=== PATIENT | female | born 1955 | race Caucasian/White ===

== ENCOUNTER 2020-03-20 22:48 | Inpatient (IN) ==
[2020-03-20] MEDS ORDERED: Isovue-370 500 ML BOTTLE IVP ONE (23:39)
[2020-03-20] MEDS ORDERED: Ondansetron 4 MG/2 ML VIAL IVP ONE (23:39)
[2020-03-20] MEDS ORDERED: 0.9 % Sodium Chloride 1,000 ML IVC ONE (23:39)
[2020-03-20 23:42] LABS: Hematocrit 56.1 % (35.3-44.9); Hemoglobin 18.3 g/dL (11.5-15.4); Mean Corpuscular HGB Conc 32.6 g/dL (31.6-35.5); Mean Corpuscular Hemoglobin 31.3 pg (28.0-33.3); Mean Corpuscular Volume 95.9 fL (83.0-100.0); Mean Platelet Volume 10.5 fL (9.4-12.4); Platelet Count 328 K/mcL (140-400); Red Blood Count 5.85 M/mcL (3.82-4.97); Red Cell Distribution Width 13.8 % (11.5-14.5); White Blood Count 13.3 K/mcL (4.3-11.1)
[2020-03-20 23:45] LABS: INR 1.5; Prothrombin Time 16.6 Seconds (9.4-12.1)
[2020-03-20 23:47] LABS: Activated Partial Thrombo Time 37.7 Seconds (26.0-36.0)
[2020-03-21 00:12] LABS: Lymphocytes # 3.2 K/mcL (0.6-4.6); Monocytes # 0.3 K/mcL (0.0-1.3); Neutrophils # 9.8 K/mcL (1.6-8.9); Platelet Estimate Normal (Normal); Reactive Lymphocytes Present (Not Present); Troponin I 0.04 ng/mL (< 0.04)
[2020-03-21 00:52] LABS: Albumin 3.3 g/dL (3.5-5.7); Albumin/Globulin Ratio 1.2 (1.1-2.2); Bilirubin,Direct 0.2 mg/dL (0.0-0.2); Bilirubin,Total 1.2 mg/dL (0.3-1.0); Calcium 8.6 mg/dL (8.6-10.3); Globulin 2.8 g/dL (2.4-3.5); Potassium 4.5 mEq/L (3.5-5.1); Total Protein 6.1 g/dL (6.4-8.9)
[2020-03-21] MEDS ORDERED: 0.9 % Sodium Chloride 1,000 ML IVC ONE (01:02)
[2020-03-21] MEDS ORDERED: Morphine Sulfate 2 MG/ML SYRINGE IVP ONE (02:01)
[2020-03-21 02:35] LABS: Amorphous Sediment,Urine Few per hpf (None-Few); Bacteria,Urine Few per hpf (None-Few); Bilirubin,Urine Negative (Negative); Blood,Urine Trace (Negative); Clarity,Urine Turbid (Clear); Color,Urine Light-Orange (Yellow); Glucose,Urine (UA) Normal (Normal); Hyaline Casts,Urine Many per lpf (None Seen); Ketones,Urine Negative (Negative); Leukocyte Esterase,Urine Negative (Negative); Mucus,Urine Few per lpf (None-Few); Nitrite,Urine Negative (Negative); PH,Urine 5.5 pH Units (5.0-8.0); Protein,Urine 70 mg/dL (Neg-Trace); RBC,Urine 0-3 per hpf (0-3); Specific Gravity,Urine 1.027 (1.010-1.025); Squamous Epithelial Cell,Urine Few per hpf (None-Few); Urobilinogen,Urine Normal (Normal); WBC,Urine 0-3 per hpf (0-3)
[2020-03-21] MEDS ORDERED: *HR* HYDROmorphone (PF) 1 MG/ML SYRINGE IVP ONE (03:21)
[2020-03-21] MEDS ORDERED: Piperacillin/Tazobactam 4.5 GM in 0.9 % Sodium Chloride Mini Bag 100 ML IVPB ONE (03:21)
[2020-03-21] MEDS ORDERED: 0.9 % Sodium Chloride 1,000 ML IVC SCH ×2 (03:30→06:15)
[2020-03-21] MEDS ORDERED: *HR* Rocuronium Bromide 50 MG/5 ML VIAL ONE (04:31)
[2020-03-21] MEDS ORDERED: *HR* Propofol 200 MG/20 ML VIAL IVP ONE (04:31)
[2020-03-21] MEDS ORDERED: *HR* Succinylcholine 200 MG/10 ML VIAL IVP ONE (04:31)
[2020-03-21] MEDS ORDERED: Lidocaine -MPF 2% 2 ML VIAL ONE (04:31)
[2020-03-21] MEDS ORDERED: Lidocaine -MPF 4% 5 ML AMPUL ONE ×2 (04:31→07:08)
[2020-03-21] MEDS ORDERED: *HR* FentaNYL (PF) 100 MCG/2 ML VIAL ONE (04:31)
[2020-03-21] MEDS ORDERED: Ondansetron 4 MG/2 ML VIAL IVP PRN (05:30)
[2020-03-21] MEDS ORDERED: Naloxone 0.4 MG/ML INJ IVP PRN (05:30)
[2020-03-21] MEDS ORDERED: Morphine Sulfate 2 MG/ML SYRINGE IVP PRN (05:32)
[2020-03-21 06:43] LABS: Hematocrit 52.6 % (35.3-44.9); Mean Corpuscular HGB Conc 31.2 g/dL (31.6-35.5); Mean Corpuscular Volume 99.4 fL (83.0-100.0); Mean Platelet Volume 10.8 fL (9.4-12.4); Platelet Count 287 K/mcL (140-400); Red Blood Count 5.29 M/mcL (3.82-4.97); Red Cell Distribution Width 14.2 % (11.5-14.5); White Blood Count 11.9 K/mcL (4.3-11.1)
[2020-03-21 06:49] LABS: INR 1.8; Prothrombin Time 20.7 Seconds (9.4-12.1)
[2020-03-21] MEDS ORDERED: Famotidine 20 MG/2 ML VIAL ONE (06:49)
[2020-03-21] MEDS ORDERED: Acetaminophen IV 1,000 MG/100 ML INFUS..BTL ONE (06:49)
[2020-03-21 06:52] LABS: Hemoglobin 16.4 g/dL (11.5-15.4)
[2020-03-21 07:08] LABS: Albumin/Globulin Ratio 1.3 (1.1-2.2); Bilirubin,Total 0.9 mg/dL (0.3-1.0); Calcium 7.6 mg/dL (8.6-10.3); Globulin 2.3 g/dL (2.4-3.5); Magnesium 6.5 mg/dL (1.6-2.6); Phosphorous 8.4 mg/dL (2.7-4.5); Potassium 4.8 mEq/L (3.5-5.1); Total Protein 5.3 g/dL (6.4-8.9)
[2020-03-21] MEDS ORDERED: Dexamethasone 4 MG/ML VIAL ONE (07:08)
[2020-03-21] MEDS ORDERED: Ondansetron 4 MG/2 ML VIAL ONE (07:08)
[2020-03-21] MEDS ORDERED: *HR* PHENYLEPHRINE 1,000 MCG/10 ML SYRINGE IVP ONE (07:23)
[2020-03-21] MEDS ORDERED: *HR* Etomidate 40 MG/20 ML VIAL IVP ONE (07:24)
[2020-03-21] MEDS ORDERED: *HR* Vasopressin 20 UNIT/ML VIAL ONE (07:26)
[2020-03-21 07:29] LABS: Eosinophils # 0.1 K/mcL (0.0-0.6); Lymphocytes # 0.6 K/mcL (0.6-4.6); Monocytes # 0.1 K/mcL (0.0-1.3); Neutrophils # 5.7 K/mcL (1.6-8.9)
[2020-03-21 07:37] LABS: Platelet Estimate Normal (Normal); Reactive Lymphocytes Present (Not Present)
[2020-03-21] MEDS ORDERED: EPINEPHrine 1 MG/ML VIAL ONE (07:44)
[2020-03-21] MEDS ORDERED: Albumin Human 5% 12.5 GM/250 ML IV.SOLN ONE ×2 (07:45→08:19)
[2020-03-21] MEDS ORDERED: Heparin 1,000 UNITS/500 mL 500 ML ONE (07:46)
[2020-03-21] MEDS ORDERED: CefOXitin 1,000 MG VIAL ONE (07:50)
[2020-03-21] MEDS ORDERED: Calcium Chloride 1,000 MG in 0.9 % Sodium Chloride 100 ML IVPB ONE ×3 (08:26→09:30)
[2020-03-21] MEDS ORDERED: Norepinephrine 4 MG/254 ML IV.SOLN IVC SCH (08:30)
[2020-03-21] MEDS ORDERED: Phenylephrine 10 MG in 0.9 % Sodium Chloride 250 ML IVC SCH (08:30)
[2020-03-21] MEDS ORDERED: *HR* Midazolam HCl 2 MG/2 ML VIAL ONE (08:32)
[2020-03-21] MEDS ORDERED: Fluconazole 400 MG/200 ML 400 MG/200 ML BAG IVPB ONE ×2 (08:39→09:30)
[2020-03-21] MEDS ORDERED: EPINEPHrine 1 MG in D5% in Water 250 ML IVC SCH (08:45)
[2020-03-21] MEDS ORDERED: Hydrocortisone Sodium Succ 100 MG/2 ML VIAL IVP ONE ×2 (08:49→09:30)
[2020-03-21] MEDS ORDERED: Pantoprazole 40 MG VIAL IVP SCH (08:50)
[2020-03-21] MEDS ORDERED: Perflutren Lipid Microsphere 1.3 ML in 0.9 % Sodium Chloride 8.7 ML IVP ONE ×2 (08:54→09:30)
[2020-03-21] MEDS ORDERED: Midazolam HCl 50 MG/100 ML IV.SOLN IVC SCH (09:00)
[2020-03-21] MEDS ORDERED: FentaNYL (PF) 1,000 MCG/100 ML IV.SOLN IVC SCH (09:00)
[2020-03-21] MEDS: FentaNYL (PF) 1,000 MCG/100 ML IV.SOLN IVC SCH ×2 (09:00→20:02)
[2020-03-21 09:19] LABS: ABG Base Excess -6 mEq/L (-2 to 3); ABG HCO3 20 mEq/L (21-27); ABG Oxygen Saturation 100 % (95-98); ABG PCO2 43 mmHg (35-45); ABG PH 7.28 pH Units (7.32-7.45); ABG PO2 597 mmHg (85-104); ABG TCO2 21 mEq/L (20-26); Blood Gas Modality VC; Blood Gas VT 500 cc
[2020-03-21 09:23] LABS: Bilirubin,Total 0.6 mg/dL (0.3-1.0); Potassium 5.5 mEq/L (3.5-5.1)
[2020-03-21] MEDS: 0.9 % Sodium Chloride 1,000 ML IVC SCH ×2 (09:57→19:30)
[2020-03-21] MEDS: Midazolam HCl 50 MG/100 ML IV.SOLN IVC SCH (09:59)
[2020-03-21] MEDS: Norepinephrine 4 MG/254 ML IV.SOLN IVC SCH ×3 (10:00→20:55)
[2020-03-21] MEDS: EPINEPHrine 1 MG in D5% in Water 250 ML IVC SCH (10:00)
[2020-03-21 11:40] LABS: ABG Base Excess -6 mEq/L (-2 to 3); ABG HCO3 22 mEq/L (21-27); ABG Oxygen Saturation 96 % (95-98); ABG PCO2 51 mmHg (35-45); ABG PH 7.24 pH Units (7.32-7.45); ABG PO2 93 mmHg (85-104); ABG TCO2 23 mEq/L (20-26); Blood Gas Modality VC; Blood Gas VT 450 cc
[2020-03-21] MEDS ORDERED: Ipratropium/Albuterol Neb 3 ML IH PRN (11:44)
[2020-03-21] MEDS ORDERED: Calcium Chloride 2,000 MG in 0.9 % Sodium Chloride 100 ML IVPB ONE (12:45)
[2020-03-21 13:04] LABS: Hematocrit 44.7 % (35.3-44.9); Mean Corpuscular HGB Conc 31.5 g/dL (31.6-35.5); Mean Corpuscular Hemoglobin 31.3 pg (28.0-33.3); Mean Corpuscular Volume 99.3 fL (83.0-100.0); Mean Platelet Volume 10.6 fL (9.4-12.4); Nucleated Red Blood Cells 0.4 /100 WBC (0); Platelet Count 207 K/mcL (140-400); Red Cell Distribution Width 14.2 % (11.5-14.5); White Blood Count 4.6 K/mcL (4.3-11.1)
[2020-03-21 13:05] LABS: Hemoglobin 14.1 g/dL (11.5-15.4)
[2020-03-21 13:54] LABS: ABG Base Excess -4 mEq/L (-2 to 3); ABG HCO3 23 mEq/L (21-27); ABG Oxygen Saturation 95 % (95-98); ABG PCO2 47 mmHg (35-45); ABG PO2 83 mmHg (85-104); ABG TCO2 25 mEq/L (20-26); Blood Gas Modality VC; Blood Gas VT 460 cc
[2020-03-21 14:13] LABS: Lymphocytes # 0.3 K/mcL (0.6-4.6); Monocytes # 1.2 K/mcL (0.0-1.3); Platelet Estimate Normal (Normal)
[2020-03-21] MEDS: Dexmedetomidine HCl 400 MCG/100 ML MLS IVC SCH (14:25)
[2020-03-21 14:37] LABS: Troponin I 0.15 ng/mL (< 0.04)
[2020-03-21 14:50] LABS: Calcium 8.7 mg/dL (8.6-10.3); Potassium 5.1 mEq/L (3.5-5.1)
[2020-03-21] MEDS: Ipratropium/Albuterol Neb 3 ML IH SCH ×3 (15:18→23:25)
[2020-03-21] MEDS ORDERED: Piperacillin/Tazobactam 3.375 GM in 0.9 % Sodium Chloride Mini Bag 100 ML IVPB SCH (16:00)
[2020-03-21] MEDS: Piperacillin/Tazobactam 3.375 GM in 0.9 % Sodium Chloride Mini Bag 100 ML IVPB SCH (16:05)
[2020-03-21] MEDS ORDERED: *HR* Dextrose 50 % in Water (Vial) 50 ML VIAL ONE (17:12)
[2020-03-21] MEDS ORDERED: *HR* Dextrose 50 % in Water (Vial) 50 ML VIAL IVP ONE (17:21)
[2020-03-21] MEDS: Pantoprazole 40 MG VIAL IVP SCH (17:28)
[2020-03-21] MEDS: D5% in 0.45% NACL 1,000 ML IVC SCH (17:53)
[2020-03-22] MEDS: Norepinephrine 4 MG/254 ML IV.SOLN IVC SCH ×4 (00:59→11:34)
[2020-03-22 01:27] LABS: Hematocrit 47.2 % (35.3-44.9); Hemoglobin 14.4 g/dL (11.5-15.4); Mean Corpuscular HGB Conc 30.5 g/dL (31.6-35.5); Mean Corpuscular Hemoglobin 31.2 pg (28.0-33.3); Mean Corpuscular Volume 102.2 fL (83.0-100.0); Mean Platelet Volume 11.6 fL (9.4-12.4); Platelet Count 175 K/mcL (140-400); Red Blood Count 4.62 M/mcL (3.82-4.97); Red Cell Distribution Width 14.6 % (11.5-14.5); White Blood Count 15.4 K/mcL (4.3-11.1)
[2020-03-22 01:40] LABS: Albumin 2.5 g/dL (3.5-5.7); Albumin/Globulin Ratio 1.3 (1.1-2.2); Calcium 8.5 mg/dL (8.6-10.3); Phosphorous 11.6 mg/dL (2.7-4.5); Potassium 5.8 mEq/L (3.5-5.1); Total Protein 4.5 g/dL (6.4-8.9)
[2020-03-22 01:43] LABS: Troponin I 0.1 ng/mL (< 0.04)
[2020-03-22] MEDS: Ipratropium/Albuterol Neb 3 ML IH SCH ×4 (03:26→15:14)
[2020-03-22] MEDS ORDERED: 0.9 % Sodium Chloride 500 ML IVC ONE (03:41)
[2020-03-22] MEDS ORDERED: 0.9 % Sodium Chloride 500 ML ONE (03:44)
[2020-03-22] MEDS: Piperacillin/Tazobactam 3.375 GM in 0.9 % Sodium Chloride Mini Bag 100 ML IVPB SCH (03:47)
[2020-03-22 04:23] LABS: ABG Base Excess -11 mEq/L (-2 to 3); ABG HCO3 19 mEq/L (21-27); ABG Oxygen Saturation 95 % (95-98); ABG PCO2 57 mmHg (35-45); ABG PH 7.13 pH Units (7.32-7.45); ABG PO2 103 mmHg (85-104); ABG TCO2 21 mEq/L (20-26); Blood Gas Modality AF; Blood Gas VT 460 cc
[2020-03-22] MEDS: Pantoprazole 40 MG VIAL IVP SCH (05:08)
[2020-03-22] MEDS ORDERED: Sodium Bicarbonate 50 MEQ/50 ML VIAL IVP ONE (05:43)
[2020-03-22] MEDS ORDERED: Calcium Chloride 2,000 MG in 0.9 % Sodium Chloride 100 ML IVPB ONE (05:43)
[2020-03-22 06:12] LABS: ABG Ionized Calcium 1.06 mmol/L (1.15-1.35)
[2020-03-22] MEDS: D5% in 0.45% NACL 1,000 ML IVC SCH (07:00)
[2020-03-22 07:46] LABS: ABG Base Excess -8 mEq/L (-2 to 3); ABG HCO3 20 mEq/L (21-27); ABG Oxygen Saturation 94 % (95-98); ABG PCO2 53 mmHg (35-45); ABG PH 7.19 pH Units (7.32-7.45); ABG PO2 88 mmHg (85-104); ABG TCO2 22 mEq/L (20-26); Blood Gas Modality VC; Blood Gas VT 460 cc
[2020-03-22] MEDS ORDERED: Hydrocortisone Sodium Succ 100 MG/2 ML VIAL IVP SCH (08:00)
[2020-03-22] MEDS ORDERED: Fluconazole 200 MG/100 ML 200 MG/100 ML BAG IVPB SCH ×2 (09:00)
[2020-03-22] MEDS: EPINEPHrine 1 MG in D5% in Water 250 ML IVC SCH (09:33)
[2020-03-22] MEDS: Midazolam HCl 50 MG/100 ML IV.SOLN IVC SCH (09:33)
[2020-03-22] MEDS ORDERED: D10% in Water 500 ML IVC PRN (10:15)
[2020-03-22] MEDS ORDERED: Sodium Bicarbonate 150 MEQ in D5% in 0.45% NACL 1,000 ML IVC SCH (10:26)
[2020-03-22 10:27] LABS: ABG Base Excess -11 mEq/L (-2 to 3); ABG HCO3 18 mEq/L (21-27); ABG Oxygen Saturation 93 % (95-98); ABG PCO2 51 mmHg (35-45); ABG PH 7.15 pH Units (7.32-7.45); ABG PO2 87 mmHg (85-104); ABG TCO2 20 mEq/L (20-26); Blood Gas Modality VC; Blood Gas VT 480 cc
[2020-03-22] MEDS ORDERED: Sodium Bicarbonate 150 MEQ in D5% in Water 1,000 ML IVC SCH (10:45)
[2020-03-22] MEDS ORDERED: Milrinone Premix 20 MG/100 ML 20 MG/100 ML BAG IVC SCH (11:15)
[2020-03-22] MEDS ORDERED: *HR* Heparin 5,000 UNIT/ML VIAL ONE (12:00)
[2020-03-22 12:11] LABS: Thyroid Stimulating Hormone 7.73 mcIU/mL (0.340-5.600)
[2020-03-22] MEDS ORDERED: Acetaminophen 650 MG RECTAL SUPP RC PRN (12:48)
[2020-03-22] MEDS ORDERED: *HR* Dextrose 50 % in Water (Vial) 50 ML VIAL IVP ONE (12:50)
[2020-03-22] MEDS ORDERED: Micafungin 100 MG in 0.9 % Sodium Chloride Mini Bag 100 ML IVPB SCH (13:00)
[2020-03-22] MEDS ORDERED: Artificial Tears SOLN 15 ML BOTTLE BOTH EYES PRN (13:06)
[2020-03-22] MEDS ORDERED: Chlorhexidine Rinse 15 ML MOUTHWASH MM SCH (13:15)
[2020-03-22] MEDS: Dexmedetomidine HCl 400 MCG/100 ML MLS IVC SCH (13:29)
[2020-03-22 13:49] LABS: ABG Base Excess -12 mEq/L (-2 to 3); ABG HCO3 17 mEq/L (21-27); ABG Oxygen Saturation 96 % (95-98); ABG PCO2 47 mmHg (35-45); ABG PH 7.15 pH Units (7.32-7.45); ABG PO2 106 mmHg (85-104); ABG TCO2 18 mEq/L (20-26); Blood Gas VT 480 cc
[2020-03-22] MEDS: FentaNYL (PF) 1,000 MCG/100 ML IV.SOLN IVC SCH (14:33)
[2020-03-22] MEDS ORDERED: Dextrose Gel 15 GM/37.5 ML TUBE PO PRN ×2 (15:06)
[2020-03-22] MEDS ORDERED: *HR* Dextrose 50 % in Water (Vial) 50 ML VIAL IVP PRN (15:06)
[2020-03-22] MEDS ORDERED: D5% in Water 1,000 ML IVC PRN (15:06)
[2020-03-22 15:19] VITALS: BP 79/34
[2020-03-22] MEDS ORDERED: Sodium Bicarbonate 50 MEQ/50 ML VIAL ONE (15:35)
[2020-03-22] MEDS ORDERED: Artificial Tears SOLN 15 ML BOTTLE BOTH EYES SCH (16:00)
[2020-03-22] MEDS ORDERED: Insulin LISPRO 300 UNITS/3 ML VIAL SQ SCH (16:00)
[2020-03-22] MEDS ORDERED: Clinimix 5%-20% SOLUTION 2,000 ML with MVI, adult with vitamin K 10 ML, Sodium Chlori... IVC SCH (17:00)
[2020-03-23] MEDS ORDERED: Clinimix 5%-20% SOLUTION 2,000 ML with MVI, adult with vitamin K 10 ML, Sodium Chlori... IVC SCH (17:00)
[2020-03-24] MEDS ORDERED: Clinimix 5%-20% SOLUTION 2,000 ML with MVI, adult with vitamin K 10 ML, Sodium Chlori... IVC SCH (17:00)
== END 2020-03-22 19:00 | disposition expired | DRG 853 ==
LOC: EMEROOARM 22:48 → 2NNU 22:48 → ICNU 03-21 12:35
PROVIDERS: ADMIT Internal Medicine; ATTEND Student in an Organized Health Care Education/Training Program